=== PATIENT | male | born 1995 | race Caucasian/White ===

== ENCOUNTER 2017-02-16 21:31 | Emergency (ER) | payer OTHER ==
[~2017-02-16] VITALS: Ht 180.3 cm; Wt 127.0 kg
[2017-02-16 22:01] VITALS: BP 155/71
[2017-02-16] MEDS ORDERED: DEXAMETHASONE SOD PHOS 10 MG/ML VIAL IM ONE (22:15)
[2017-02-16] MEDS ORDERED: diphenhydrAMINE 50 MG/ML VIAL IM ONE (22:15)
--- NOTE | 2017-02-17 01:03 | ED.ADGEN ---
Past History Past Medical History: No Pertinent History Past Surgical History: No Surgical History Alcohol Use: None Drug Use: None Adult General Chief Complaint Chief Complaint Rash HPI HPI Patient is a 21-year-old male presents with rash and itching to face, torso and extremities after being exposed to poison ryan earlier today while digging weeds. She has history of severe reactions to poison ryan. Deniess airway tightness, shortness breath, wheezing, denies ocular involvement. Review of Systems Review of Systems ROS as per HPI. Current Medications Current Medications Current Medications Medications (Trade) Dose Ordered Sig/Farrah Start Time Stop Time Status Last Admin Dose Admin Dexamethasone Sodium Phosphate (Decadron) 10 mg 1X ONCE 02/16/17 22:15 02/16/17 22:16 DC 02/16/17 22:08 10 MG Diphenhydramine HCl (Benadryl) 50 mg 1X ONCE 02/16/17 22:15 02/16/17 22:16 DC 02/16/17 22:08 50 MG Allergies Allergies Allergies Coded Allergies Type Severity Reaction Last Updated Verified poison ryan extract Allergy Unknown 02/16/17 Yes poison oak extract Allergy Unknown 02/16/17 Yes Physical Exam Physical Exam Constitutional: Well developed, well nourished, no acute distress, non-toxic appearance. [] HENT: Normocephalic, atraumatic, bilateral external ears normal, oropharynx moist, no oral exudates, nose normal. [] Eyes: PERRLA, EOMI, conjunctiva normal, no discharge. [] Neck: Normal range of motion, no tenderness, supple, no stridor. [] Cardiovascular:Heart rate regular rhythm, no murmur [] Lungs & Thorax: Bilateral breath sounds clear to auscultation [] Abdomen: Bowel sounds normal, soft, no tenderness, no masses, no pulsatile masses. [] Skin: Maculopapular rash of face, neck and extremities consistent with plant dermatitis. Back: No tenderness, no CVA tenderness. [] Extremities: No tenderness, no cyanosis, no clubbing, ROM intact, no edema. [] Neurologic: Alert and oriented X 3, normal motor function, normal sensory function, no focal deficits noted. [] Psychologic: Affect normal, judgement normal, mood normal. [] Current Patient Data Vital Signs Vital Signs Date Time Temp Pulse Resp B/P (MAP) Pulse Ox O2 Delivery O2 Flow Rate FiO2 02/16/17 23:42 98.4 67 18 95 Room Air EKG EKG [] Radiology/Procedures Radiology/Procedures [] Course & Med Decision Making Course & Med Decision Making Pertinent Labs and Imaging studies reviewed. (See chart for details) [Decadron and jg given. Medrol dose pack prescribed.] Final Impression Final Impression [1. Plant dermatitis] Problems: Dragon Disclaimer Dragon Disclaimer This electronic medical record was generated, in whole or in part, using a voice recognition dictation system. ANTOLIN EWING DO February 17, 2017 01:03
== END 2017-02-16 22:15 | disposition home or self-care (01) ==
LOC: ER 21:31
DX: L25.5 Unspecified contact dermatitis due to plants, except food (principal); Z91.048 Other nonmedicinal substance allergy status
CPT/HCPCS: 96372; 99284; J1100; J1200

== ENCOUNTER 2017-06-26 19:30 | Emergency (ER) | payer OTHER ==
[~2017-06-26] VITALS: Ht 180.3 cm; Wt 136.3 kg
[2017-06-26 19:42] VITALS: BP 158/107
[2017-06-26] MEDS ORDERED: SULF1TAB24 PO (20:38)
[2017-06-26] MEDS ORDERED: ACYC800T PO (20:38)
--- NOTE | 2017-06-26 20:39 | PHYS DOC ---
Past History Past Medical History: No Pertinent History Past Surgical History: Other Additional Smoking Information: 2 PACKS A WEEK Alcohol Use: Occasionally Drug Use: None Adult General Chief Complaint Chief Complaint: SKIN PROBLEM HPI HPI Patient is a 21 year old male who presents with rash over his left shoulder and neck. States it started 2 days ago and is been getting worse. He states it's a burning sensation. He denies any fevers chills nausea vomiting. He states he was sick about a week ago. He states he did have chickenpox as a child. He denies any numbness or tingling down his arm. Review of Systems Review of Systems Constitutional: Denies fever or chills [] Eyes: Denies change in visual acuity, redness, or eye pain [] HENT: Denies nasal congestion or sore throat [] Respiratory: Denies cough or shortness of breath [] Cardiovascular: No additional information not addressed in HPI [] GI: Denies abdominal pain, nausea, vomiting, bloody stools or diarrhea [] : Denies dysuria or hematuria [] Musculoskeletal: Denies back pain or joint pain [] Integument: Positive for rash on left shoulder Neurologic: Denies headache, focal weakness or sensory changes [] Endocrine: Denies polyuria or polydipsia [] Current Medications Current Medications Current Medications Medications (Trade) Dose Ordered Sig/Farrah Start Time Stop Time Status Last Admin Dose Admin Acyclovir (Zovirax) 800 mg 1X ONCE 06/26/17 20:30 06/26/17 20:31 UNV Allergies Allergies Allergies Coded Allergies Type Severity Reaction Last Updated Verified poison ryan extract Allergy Unknown 02/16/17 Yes poison oak extract Allergy Unknown 02/16/17 Yes Physical Exam Physical Exam Constitutional: Well developed, well nourished, no acute distress, non-toxic appearance. [] HENT: Normocephalic, atraumatic, bilateral external ears normal, oropharynx moist, no oral exudates, nose normal. [] Eyes: PERRLA, EOMI, conjunctiva normal, no discharge. [] Neck: Normal range of motion, no tenderness, supple, no stridor. [] Cardiovascular:Heart rate regular rhythm, no murmur [] Lungs & Thorax: Bilateral breath sounds clear to auscultation [] Abdomen: Bowel sounds normal, soft, no tenderness, no masses, no pulsatile masses. [] Skin: Warm, dry, vesicular type rash on the left base of his neck down the left shoulder in a dermatomal fashion Back: No tenderness, no CVA tenderness. [] Extremities: No tenderness, no cyanosis, no clubbing, ROM intact, no edema. [] Neurologic: Alert and oriented X 3, normal motor function, normal sensory function, no focal deficits noted. [] Psychologic: Affect normal, judgement normal, mood normal. [] Current Patient Data Vital Signs Vital Signs Date Time Temp Pulse Resp B/P (MAP) Pulse Ox O2 Delivery O2 Flow Rate FiO2 06/26/17 19:42 97.8 80 20 96 Room Air EKG EKG [] Radiology/Procedures Radiology/Procedures [] Impressions: Herpes zoster Course & Med Decision Making Course & Med Decision Making Pertinent Labs and Imaging studies reviewed. (See chart for details) His exam is consistent with herpes zoster. We'll start acyclovir 800 mg 5 times a day for the next 7 days. We'll also prescribe Bactrim DS one tablet twice a day if his rash becomes infected. He is using his own judgment after 5 days if he will need to start taking Bactrim. He is to keep the area covered as it's contagious if its uncovered and is to avoid any children or females. He is agreeable Plan B discharged in stable condition this time. Dragon Disclaimer Dragon Disclaimer This chart was dictated in whole or in part using Voice Recognition software in a busy, high-work load, and often noisy Emergency Department environment. It may contain unintended and wholly unrecognized errors or omissions. Departure Departure: Impression: Primary Impression: Herpes zoster Disposition: 01 HOME, SELF-CARE Condition: STABLE Referrals: PCP,UNKNOWN (PCP) Patient Instructions: Shingles Additional Instructions: This is likely shingles that you have. You will need take an antiviral medicine called acyclovir you will need take 800 mg 5 times daily for the next 7 days. You can also use Tylenol as needed for pain. Your discomfort will get better over the next several days. He also being discharged with an antibiotic in case VS area becomes infected. Please keep an eye on it becomes more red, inflamed, you develop high fevers then he can start taking Bactrim 1 tablet twice a day. You are contagious and will need to avoid any females or children. You will need to keep the area covered which might be difficult since is at the base of your neck at your hairline. As long as covered you should not be contagious. If you develop high fevers, uncontrolled nausea vomiting, severe pain or other concerns please return back to emergency department. Scripts Sulfamethoxazole/Trimethoprim (BACTRIM DS TABLET) 1 Each Tablet 1 TAB PO BID, #14 TAB Prov: MARIZA MCCLENDON MD 06/26/17 Acyclovir (ACYCLOVIR) 800 Mg Tablet 1 TAB PO 5XDAY, #50 TAB Prov: MARIZA MCCLENDON MD 06/26/17 Problem Qualifiers Primary Impression: Herpes zoster Herpes zoster complications: with other complications Qualified Codes: B02.8 - Zoster with other complications MARIZA MCCLENDON MD Jun 26, 2017 20:38
[2017-06-26] MEDS ORDERED: ACYCLOVIR 200 MG CAPSULE PO ONE (20:45)
[2017-06-26] MEDS ORDERED: ONDANSETRON ODT 4 MG TAB.RAPDIS PO ONE (21:00)
== END 2017-06-26 21:08 | disposition home or self-care (01) ==
LOC: ER 19:30
DX: B02.9 Zoster without complications (principal); F17.200 Nicotine dependence, unspecified, uncomplicated; Z91.048 Other nonmedicinal substance allergy status
CPT/HCPCS: 99283